=== PATIENT | female | born 1980 | race African-American/Black ===

== ENCOUNTER 2023-09-13 01:26 | Day surgery (SDC) | payer BC, SELFPAY ==
[2023-09-06 14:30] VITALS: BMI 33.9
--- NOTE | 2023-09-06 14:37 | PC.NURSE ---
Report to the Outpatient Waiting Room, entrance under the green pavilion located off [facility], at time 6:00 on date 09/13/23. Planned Procedure Time: 7:30. Time changes happen often and if your time is changed the preop area will call you the afternoon before. - You and your visitor will be asked to self-screen and do not enter if you have any COVID symptoms. - A mask is optional within the hospital at this time. Patients may have clear liquids (water, carbonated beverages, clear teas, apple juice) until 3 hours prior to surgery (4:30) with a maximum of 20 ounces. - No food from midnight until time of surgery Take the following medications with a SIP of water the morning of surgery: NONE DO NOT STOP ANY OF YOUR OTHER PRESCRIPTION MEDICATIONS PRIOR TO SURGERY ?EXCEPT THE FOLLOWING Medications to discontinue per physician: VITAMINS/SUPPLEMENTS Date to take last dose: 09/09/23 Please no make-up, nail ethiopian, hairspray, perfume, deodorant, or body powder the day of surgery. No jewelry (including any body piercings) or valuables the day of surgery, leave them at home. Please take a shower or bath the night before, or the morning of, surgery with an antibacterial soap. Wear comfortable, loose fitting clothing. - Jewelry must be removed prior to entering the operating room. Rings and piercings that are not removed may be cut off. - The hospital will not accept responsibility for valuables. - Please leave all valuables, including medications, at home the day of surgery. If you are going home after surgery, a licensed tow car driver must drive you home. - NO public transportation without another adult if you receive anesthesia. - We recommend that an adult stay with you for 24 hours following discharge. - We also recommend that you do not drive, make important decision, drink alcoholic beverages, or take any drugs that were not prescribed by your health care provider for at least 24 hours after your discharge time. Follow any additional instructions given to you from your surgeon. If you or anyone in your household have experienced Covid symptoms in the past week, please notify your surgeon or the nurse liaison at the phone number below for possible testing. Telephone instructions given to PT Aaron HANCOCK and asked if any additional questions and then verbalized understanding. Patient advised to call surgeon office or pre surgery nurse liaison [phone] if any additional questions.
--- NOTE | 2023-09-12 16:38 | PM.IMHP ---
H&P: HPI History of Present Illness Date/Time: 09/12/23 16:38 Chief Complaint: Irregular bleeding, fibroid uterus. Narrative: 43 y/o G3 with a long history of menorrhagia. She has had a prior endometrial ablation which did not help her symptoms. She has tried IUD and continued to have irregular bleeding and the device migrated to lower uterus. IUD was removed and she was tried Slynd without relief. She has had an endometrial biopsy which was benign. She has opted for definitive treatment with robotic assisted hysterectomy with bilateral salpingectomy. Possible removal of ovaries if any concerns with ovaries. Review of Systems Review of Systems: All systems reviewed & are unremarkable except as noted in HPI and below Cardiovascular: Cardiovascular: Reports no additional cardiovascular complaints, Denies chest pain and Denies dyspnea Respiratory: Respiratory: Reports no additional respiratory complaints and Denies dyspnea Gastrointestinal: Gastrointestinal: Reports abdominal pain, Denies change in bowel habits, Denies diarrhea, Denies nausea and Denies vomiting Genitourinary: Genitourinary: Reports pelvic pain Musculoskeletal: Musculoskeletal: Reports back pain Integumentary/Breasts: Skin/Breast: Reports system reviewed and no additional complaints, except as docu Neurologic: Reports system reviewed and no additional complaints, except as documented PMFSH Past Medical History Medical History Anxiety Arthritis History of menorrhagia Lump of right breast Seasonal allergies Surgical History Surgical History Gastric bypass status for obesity x 2 History of section x3 History of cholecystectomy History of endometrial ablation History of tubal ligation [place] teeth removed Family History Family History Father Alcoholism Skin cancer Depression Mother Thyroid disorder Depression Other Alcoholism Aunt and Uncle Skin cancer Pancreatic cancer uncle Breast cancer Aunt Cerebrovascular accident Uncle Grandparent Carcinoma of colon Breast cancer Diabetes mellitus Hypertension Son Depression Social History Social History Smoking status: Former smoker Tobacco type: cigarettes Additional smoking assessment comments: ONLY IN COLLEGE Alcohol intake: never Substance use: never Substance use type: does not use Current Housing: Decline to Answer Concerned About Future Housing: Decline to Answer Difficulty Paying Gas/Electric Bills: Decline to Answer Difficulty Paying for Meds: Decline to Answer Currently Unemployed: Decline to Answer Education: Decline to Answer Difficulty w/ Childcare or Family Care: Decline to Answer Living arrangements: with family Gender identity (if verbalized by the patient): Female Sexual Orientation (if Verbalized by the Patient): Straight or Heterosexual Spiritual care concerns: No Meds Home Medications and Allergies Home Medications Medication Instructions Recorded Confirmed Type cetirizine 10 mg capsule (Zyrtec) 10 mg PO DAILY PRN Allergy Symptoms 11/20/22 09/06/23 History cholecalciferol (vitamin D3) 1,250 1,250 mcg PO WEEKLY 11/20/22 09/13/23 History mcg (50,000 unit) capsule multivitamin (Daily Multi-Vitamin 1 tablet PO DAILY 11/20/22 09/13/23 History tablet) nystatin-triamcinolone 100,000 1 applic topical BID #30 grams 11/20/22 09/06/23 Rx unit/g-0.1 % topical cream omeprazole magnesium 20 mg 20 mg PO DAILY 11/20/22 09/06/23 History tablet,delayed release (Prilosec OTC) biotin 1,000 mcg chewable tablet 1,000 mcg PO DAILY 09/06/23 09/13/23 History calcium carbonate 600 mg calcium 600 mg PO DAILY 09/06/23 09/13/23 History (1,500 mg) tablet (Calcium) vitamin C 45 m
[2023-09-13] VITALS (9 sets, daily range): BP systolic 93–118; BP diastolic 55–75; PULSE 70–88; RESP 13–18; TEMP 36.3–36.9; O2SAT 98–100; BMI 33.7
--- NOTE | 2023-09-13 06:45 | WPDANESEPPF ---
Anes - Initial Pre Proc Eval Procedure: Operation Date: 09/13/23 07:30 Proposed Procedures p Robotic Laparoscopic Assisted Total Vaginal Hysterectomy with Bilateral Salpingectomy - Marty Varghese MD Date/Time: 09/13/23 06:45 Surgeon: Marty Varghese MD Pre Op Diagnosis: abnormal bleeding, fibroids Patient Data Age: 43 Gender: F Height: 1.68 m Weight: 95.25 kg Allergies Allergy/AdvReac Type Severity Reaction Status Date / Time azithromycin Allergy Intermediate Unknown Verified 09/13/23 06:45 adhesive tape Allergy Itching Verified 09/13/23 06:45 Home Medications Medication Instructions Recorded Confirmed Type cetirizine 10 mg capsule (Zyrtec) 10 mg PO DAILY PRN Allergy Symptoms 11/20/22 09/06/23 History cholecalciferol (vitamin D3) 1,250 1,250 mcg PO WEEKLY 11/20/22 09/06/23 History mcg (50,000 unit) capsule multivitamin (Daily Multi-Vitamin 1 tablet PO DAILY 11/20/22 09/06/23 History tablet) nystatin-triamcinolone 100,000 1 applic topical BID #30 grams 11/20/22 09/06/23 Rx unit/g-0.1 % topical cream omeprazole magnesium 20 mg 20 mg PO DAILY 11/20/22 09/06/23 History tablet,delayed release (Prilosec OTC) biotin 1,000 mcg chewable tablet 1,000 mcg PO DAILY 09/06/23 09/06/23 History calcium carbonate 600 mg calcium 600 mg PO DAILY 09/06/23 09/06/23 History (1,500 mg) tablet (Calcium) vitamin C 45 mg-zinc citrate 4 1 tablet PO DAILY 09/06/23 09/06/23 History mg-elderberry 50 mg chewable tablet (Elderberry [facility]) Patient hx anesthesia problems: none Family hx anesthesia problems: none Results Review: All pre-operative results and documents have been reviewed as part of the pre-operative evaluation. [facility] Past Medical History Medical History Anxiety Arthritis History of menorrhagia Lump of right breast Seasonal allergies Surgical History Surgical History Gastric bypass status for obesity x 2 History of section x3 History of cholecystectomy History of endometrial ablation History of tubal ligation [place] teeth removed Family History Family History Father Alcoholism Skin cancer Depression Mother Thyroid disorder Depression Other Alcoholism Aunt and Uncle Skin cancer Pancreatic cancer uncle Breast cancer Aunt Cerebrovascular accident Uncle Grandparent Carcinoma of colon Breast cancer Diabetes mellitus Hypertension Son Depression Social History Social History Smoking status: Former smoker Tobacco type: cigarettes Additional smoking assessment comments: ONLY IN COLLEGE Alcohol intake: never Substance use: never Substance use type: does not use Current Housing: Decline to Answer Concerned About Future Housing: Decline to Answer Difficulty Paying Gas/Electric Bills: Decline to Answer Difficulty Paying for Meds: Decline to Answer Currently Unemployed: Decline to Answer Education: Decline to Answer Difficulty w/ Childcare or Family Care: Decline to Answer Living arrangements: with family Gender identity (if verbalized by the patient): Female Sexual Orientation (if Verbalized by the Patient): Straight or Heterosexual Spiritual care concerns: No Anes - Eval Final PreProcedure Day of Procedure 09/13/23 06:45 Patient weight: obese Heart: regular rate and rhythm Lungs: clear to auscultation Airway: Mallampati scale class II Neurological: alert and oriented Last oral intake: >/= 8 hours ASA classification: II Emergent: no Anesthetic plan: proceed Anesthesia type and monitoring: general ETT and standard monitoring Results Review: All pre-operative results and documents have been reviewed as part of the pre-operative evaluation. Informe
[2023-09-13] MEDS: LACTATED RINGERS 1,000 ML 30 ML IV CONT ×2 (07:15→10:34)
--- NOTE | 2023-09-13 07:16 | WPDHPUPDATE1 ---
History and Physical Update Update Date/Time: 09/13/23 07:16 History and Physical has been reviewed, including an updated exam of the patient. There are NO changes in the patient's condition. Risks, benefits, and alternatives have been discussed and questions answered. Patient agrees to proceed with procedure.
[2023-09-13] MEDS: KETOROLAC 15 MG/ML VIAL (*BKC) IV PUSH (07:18)
[2023-09-13] MEDS: ACETAMINOPHEN 500 MG TABLET 1000 MG PO (07:18)
[2023-09-13] MEDS: ceFAZolin 2 GM/D5W 50 ML 2 GM/50 ML BAG IVPB (07:39)
[2023-09-13] MEDS: BUPivacaine HCL 0.5% 10 ML AMP 20 ML INFILTRATE (08:03)
--- NOTE | 2023-09-13 10:26 | W.PM.PROC2 ---
Procedure Note - Detailed Date of Procedure 09/13/23 Pre-op Diagnosis abnormal bleeding, fibroids Post-op Diagnosis Other (3.Left ovarian cyst 4. Pelvic adhesions ) Procedure Performed 1. Robotic assisted laparoscopic vaginal hysterectomy with bilateral salpingectomy 2. Ovarian cyst reduction 3. Cystoscopy Surgeon Marty Varghese MD [employer] Clerk William Anesthesia General Indications Persistent irregular bleeding Findings Filshe clip in adhesions near bladder, endometriosis lesions near ovary and broad ligament, bladder very scarred to anterior uterus. Normal bladder on cystoscopy. Bilateral ureteral jetting. Description of Procedure After informed consent was obtained she was taken to the operating room and general endotracheal anesthesia was administered. She was placed in low lithotomy position. An exam under anesthesia was performed. No adnexal masses palpated. She was and prepped and draped in sterile fashion. Lee catheter placed in bladder. Bladder was filled with saline with Methylene blue. Attention was turned to the vagina speculum was inserted. Single-tooth tenaculum placed on anterior lip of the cervix the uterus sounded to 8 cm. The cervix was dilated to a 8 Patel dilator. A size 6 uterine manipulator was inserted and secured. A size 3.0 colp cup was secured in the vagina. Then attention was turned to the abdomen with new sterile gloves. .25% marcaine injected subcutaneously. An incision was made horizontal 2 cm above the umbilicus. The subcutaneous tissue was dissected with S retractors. Anterior and posterior fascia grasped with Rae clamp and incised. Peritoneum entered. No adhesions palpated. The fascia sutures were secured with 0 vicryl. The robotic hysson port and camera inserted into abdomen and secured to fascial sutures. A Pneumoperitoneum of 15 mm per mercury was obtained. A small incision was made approximately 6 cm lateral to the port on the left side of the port. A size 8mm robotic port was inserted under laparoscopic visualization into the abdomen on the left side. Attention was turned to right side of abdomen and marcaine injected and incision made and robotic port inserted under laparoscopic visualization. Attention was turned superior and medial and Marcaine was injected subcutaneously and a size 8 sales service assistant port was inserted under laparoscopic visualization. Patient was placed in Trendelenburg position. Robotic arms were attached. Attention was then turned to the surgery consult. Round ligament on the right side was cauterized and ligated with the vessel sealer the anterior leaf of the broad ligament was dissected anteriorly. The right side of the bladder extensive adhesions were dissected from the lower uterine segment. The right fallopian tube was ligated from the broad ligament with the vessel sealer. The right ovarian ligament was ligated with the vessel sealer. The a posterior leaf of the broad ligament was further dissected. The ascending uterine vessels on the right were cauterized. Attention was turned to the left round ligament which was ligated and the anterior leaf of the broad ligament was dissected anteriorly. The right ovary had a large corpus luteum cyst which the cyst was incised and the fluid suction to improve visualization of the right fallopian tube. Hemostasis was noted at the site on the ovarian cyst wall. The left fallopian tube was ligated from the broad ligament. The left ovarian ligament was ligated. Attention was turned to the bladder and it took approximately 15 minutes to lyse the adhesions of the bladder from the lower uterus and to identify the vesicouterine peritoneum. Once the adhesions were ligated and the vesical peritoneum was dissected from the lower uterus and the cold cup could be identified then the ascending vessels on both sides of the uterus were ligated. The uterine arteries were ligated. The cardinal ligaments were ligated. This was done on both sides. An incis
[2023-09-13] MEDS: fentaNYL CITRATE INJ (*CRX) 100 MCG/2 ML VIAL 25 MCG IV PUSH ×3 (11:07→11:45)
[2023-09-13] MEDS: DEXTROSE 5%/0.45% SOD CHL 1,000 ML 125 ML IV CONT (12:05)
[2023-09-13] MEDS: MORPHINE SULFATE (*CRX) 4 MG/ML INJ IV PUSH ×2 (12:05→18:46)
--- NOTE | 2023-09-13 12:40 | P.DS_ITS ---
DS: Admitting Diagnosis Discharge Date September 13 Admitting Diagnosis Abnormal uterine bleeding. Fibroid uterus. DS: Discharge Diagnosis Discharge Diagnosis (1) Fibroids: Code(s): D21.9 - Benign neoplasm of connective and other soft tissue, unspecified Status: Acute (2) Heavy menstrual bleeding: Code(s): N92.0 - Excessive and frequent menstruation with regular cycle Status: Acute DS: Summary Hospital Course Reason for hospitalization: She was admitted for planned robotic hysterectomy. Hospital Course: She had an uncomplicated hysterectomy bilateral salpingectomy. Post- operatively. She did well and was discharged to home on postop day 1. Was tolerating regular food had adequate pain control and was ambulating without difficulty. Time Spent with Patient Time attestation: Total time spent providing and/or coordinating discharge services: Exam Const: General: healthy appearing Eyes: General: appearance normal, both eyes and all related structures Resp: Effort & Inspection: normal respiratory effort GI: Other: incisions intact Neuro: General: oriented to person, oriented to place and oriented to time Extrem: General: normal to inspection DS: Data Data Completed and Pending Pending studies at discharge: Pending at discharge 09/13/23 09:59 Surgical [PTH] Routine Labs on day of discharge: Labs from last 24 hours 09/13/23 07:16 Blood Type O Positive Antibody Screen Negative Discharge Plan Discharge Patient Disposition: Home, Self-Care Discharge Instructions: Some Complications to Watch for: ? Excessive incisional or vaginal drainage (more than one pad an hour). Additional Instructions: ? Expect some vaginal spotting for 2-4 days. ? Nothing vaginally (i.e. douching, intercourse, tampons) until follow up visit. Patient Instructions: Laparoscopic Hysterectomy (DC) Follow-up/Referrals: Marty Varghese MD [Physician] - Keep Reg. Scheduled Appt. Discharge Medications: New hydrocodone-acetaminophen 5-325 mg Tablet 1 tablet PO Q3H PRN (Reason: Pain Rated 5 Or Less) Qty: 25 0RF No Action Zyrtec 10 mg capsule 10 mg PO DAILY PRN (Reason: Allergy Symptoms) omeprazole magnesium [Prilosec OTC] 20 mg tablet,delayed release (DR/EC) 20 mg PO DAILY cholecalciferol (vitamin D3) 1,250 mcg (50,000 unit) capsule 1,250 mcg PO WEEKLY Patient Comments: PT TAKES ON SATURDAY multivitamin [Daily Multi-Vitamin] Tablet 1 tablet PO DAILY nystatin-triamcinolone 100,000-0.1 unit/g-% cream 1 applic topical BID Qty: 30 0RF Rx Instructions: apply a thin layer to affected area twice daily for 7 days calcium carbonate [Calcium 600] 600 mg calcium (1,500 mg) Tablet 600 mg PO DAILY biotin 1,000 mcg Tablet,Chewable 1,000 mcg PO DAILY [employer] 45-4-50 mg Tablet,Chewable 1 tablet PO DAILY Quality VTE Prophylaxis VTE prophylaxis: mechanical ordered
[2023-09-13] MEDS: HYDROcodone/acetaminophen (*CRX) 10-325 MG TABLET 1 TAB PO ×3 (12:55→23:42)
[2023-09-13] MEDS: SIMETHICONE 80 MG TAB.CHEW PO (16:28)
[2023-09-13] MEDS: SIMETHICONE 80 MG TAB.CHEW (18:46)
[2023-09-14] VITALS: BP 97/53; PULSE 86; RESP 18; TEMP 37.3; O2SAT 98
[2023-09-14] MEDS: HYDROcodone/acetaminophen (*CRX) 5-325 MG TABLET 1 TAB PO (04:42)
[2023-09-14 05:53] LABS: Hematocrit 33.6 % (37.0-47.0); Hemoglobin 10.9 g/dL (12.0-15.0)
[2023-09-14] MEDS: LORATADINE 10 MG TABLET PO (08:44)
[2023-09-14] MEDS: SIMETHICONE 80 MG TAB.CHEW PO ×3 (08:44→16:40)
[2023-09-14] MEDS: PANTOPRAZOLE 40 MG TABLET PO (08:44)
[2023-09-14] MEDS: HYDROcodone/acetaminophen (*CRX) 10-325 MG TABLET 1 TAB PO ×3 (08:47→16:39)
--- NOTE | 2023-09-14 09:36 | PM.GYNPNOP ---
[employer] PERSON - A/P Postoperative Procedures: Procedures Operation Date: 09/13/23 07:30 Actual Procedure Side Surgeon p Robotic Laparoscopic Assisted Total Vaginal Hysterectomy with Bilateral Salpingectomy, Destruction of Left Ovarian Cyst Bilateral Marty Varghese MD Time Spent With Patient Time: Total time spent is greater than 50% in coordination of care (as documented) at patient's floor/unit and/or counseling patient: Time with patient: 15 - 25 minutes [employer]- PN:Subj Post-Op Subjective Date/time seen: 09/14/23 09:36 Diet ambulation without difficulty. Pain well controlled. Abdomen positive bowel sounds soft incisions intact Discharge home later today with follow-up with Dr. Orellana as scheduled [employer] - PN: Obj Data Vital Signs Vital Signs: Vital Signs - 24 hr 09/13/23 10:34 09/13/23 10:50 09/13/23 11:05 Temperature 97.3 F L Pulse Rate 88 84 76 Respiratory Rate 18 13 16 Blood Pressure 118/72 117/61 117/73 Pulse Oximetry 100 98 98 Oxygen Delivery Simple Face Mask Room Air Room Air Oxygen Flow Rate 10 09/13/23 11:20 09/13/23 11:35 09/13/23 12:10 Temperature 98.5 F Pulse Rate 75 76 85 Respiratory Rate 15 14 16 Blood Pressure 118/69 117/75 115/73 Pulse Oximetry 99 99 100 Oxygen Delivery Room Air Room Air Oxygen Flow Rate 09/13/23 16:30 09/13/23 20:00 09/14/23 00:00 Temperature 98.2 F 98 F 99.2 F Pulse Rate 79 72 86 Respiratory Rate 18 18 18 Blood Pressure 97/57 L 93/55 L 97/53 L Pulse Oximetry 98 98 98 Oxygen Delivery Oxygen Flow Rate Intake/Output Intake/Output: Intake & Output 09/11/23 09/12/23 09/13/23 09/14/23 23:59 23:59 23:59 23:59 Intake Total 800 640 Output Total 500 550 Balance 300 90 Meds/Results Medications: Active Medications Generic Name Dose Route Start Last Admin Trade Name Freq PRN Reason Stop Dose Admin Hydrocodone Bitart/Acetaminophen 1 tab 09/13/23 11:09 09/14/23 04:42 Hydrocodone/Acetaminophen (*Crx) 5-325 Mg Tablet PO 1 tab Q3H PRN Administration Pain Rated 5 or Less Hydrocodone Bitart/Acetaminophen 1 tab 09/13/23 11:09 09/14/23 08:47 Hydrocodone/Acetaminophen (*Crx) 10-325 Mg Tablet PO 1 tab Q3H PRN Administration Pain Rated 6 or Greater Dextrose/Sodium Chloride 1,000 mls @ 125 mls/hr 09/13/23 11:10 09/13/23 12:05 Dextrose 5% Sodium Chloride 0.45% IV CONT 125 mls/hr .Q8H GENET Administration Loratadine 10 mg 09/13/23 12:17 09/14/23 08:44 Loratadine 10 Mg Tablet PO 10 mg DAILY PRN Administration Allergy Symptoms Morphine Sulfate 4 mg 09/13/23 11:09 09/13/23 18:46 Morphine Sulfate (*Crx) 4 Mg/Ml Inj IV PUSH 4 mg Q4H PRN Administration Severe breakthrough pain Naloxone HCl 0.1 mg 09/13/23 11:09 Naloxone Hcl 0.4 Mg/Ml Vial IV PUSH Q2M PRN Respiratory rate less than 10 Ondansetron HCl 4 mg 09/13/23 11:09 Ondansetron Inj 4 Mg/2 Ml Vial IV PUSH Q6H PRN Nausea And Vomiting Pantoprazole Sodium 40 mg 09/14/23 09:00 09/14/23 08:44 Pantoprazole 40 Mg Tablet PO 40 mg DAILY GENET Administration Simethicone 80 mg 09/13/23 12:00 09/14/23 08:44 Simethicone 80 Mg Tab.Chew PO 80 mg TIDWM GENET Administration Labs 09/14/23 05:00 Labs: Laboratory Results - last 24 hr 09/14/23 05:00 Hgb 10.9 L Hct 33.6 L
[2023-09-14 10:28] VITALS: BP 109/64; PULSE 85; RESP 16; TEMP 37.1; O2SAT 100
[2023-09-14] MEDS: ONDANSETRON INJ 4 MG/2 ML VIAL IV PUSH (13:16)
--- NOTE | 2023-09-14 13:39 | WPDANESPN ---
Anes - Prog Note Post-Op Date/Time: 09/14/23 13:39 Cardiovascular status: normal Respiratory status: normal Airway patency: baseline Mental status: baseline Post-Op hydration status: normal Vital Signs: Last Vital Signs Temp 37.1 C 09/14/23 10:28 Pulse 85 09/14/23 10:28 Resp 16 09/14/23 10:28 BP 109/64 09/14/23 10:28 Pulse Ox 100 09/14/23 10:28 O2 Del Method Room Air 09/14/23 10:28 O2 Flow Rate 10 09/13/23 10:34 Pain Score (VAS): 0/10 I/O: Intake & Output 09/13/23 09/14/23 09/14/23 23:59 07:59 15:59 Intake Total 600 640 Output Total 500 550 Balance 100 90 Laboratory Tests 09/14/23 05:00 09/14/23 05:00 Hgb 10.9 L Hct 33.6 L Post-procedural complaints: nausea Patient Feedback: Patient satisfied with anesthetic care.
== END 2023-09-14 16:52 | disposition home or self-care (01) ==
LOC: ANHSURGERY 12:35 → ANHOB2 12:58
PROVIDERS: PCP Family Medicine; Visit Provider Obstetrics & Gynecology
PROC: (CPT 58552; principal; 2023-09-13 07:30)
DX: N92.0 Excessive and frequent menstruation with regular cycle (principal); D25.0 Submucous leiomyoma of uterus; N83.11 Corpus luteum cyst of right ovary; N73.6 Female pelvic peritoneal adhesions (postinfective); N80.102 Endometriosis of left ovary, unspecified depth; N80.3C1 Endometriosis of the right uterosacral ligament, unspecified depth; F41.9 Anxiety disorder, unspecified; J30.2 Other seasonal allergic rhinitis; E66.9 Obesity, unspecified; Z68.33 Body mass index [BMI] 33.0-33.9, adult; Z98.84 Bariatric surgery status; Z90.49 Acquired absence of other specified parts of digestive tract; Z87.891 Personal history of nicotine dependence; Z84.0 Family history of diseases of the skin and subcutaneous tissue; Z80.0 Family history of malignant neoplasm of digestive organs; Z80.3 Family history of malignant neoplasm of breast; Z82.49 Family history of ischemic heart disease and other diseases of the circulatory system
CPT/HCPCS: 58552; 58662; S2900; 36415; 85014; 85018; 86850; 86900; 86901; 88307; 99199; A9270; J0690; J1885; J2250; J2270; J2405; J3010; J7030; J7120; Q9968